=== PATIENT | female | born 1975 | race Caucasian/White ===

== ENCOUNTER 2017-06-09 08:23 | Day surgery (SDC) | payer OTHER, SELFPAY ==
--- NOTE | 2017-06-09 | EMB_PTH ---
PATIENT: DOMINIQUE STACK LOC: [facility] – [place] U#:[id number] AGE/SX: 41/F ROOM: RE06/09/[address]: Dr. Shilpi Enirque MD : [id number] BED: DIS: 06/09/2017 SPEC #: [id number] RECD: 06/09/17 14:27 STATUS: DESMOND JON #: [id number] YUSUF: 06/09/17 00:[address]: Shilpi Enrique DEPT: SURGICAL PATHOLOGY RECD BY: Dano Junior ENTERED: 06/09/17 14:28 SP TYPE: ENDOM BX/C DARWIN DR: Dr. Mert Smith MD Tissues: Endometrium, NOS Procedures: Surgery Specimen Level IV HEADER OPERATION: Hysteroscopy, dilation and curettage, polyp resection, Mirena PRE-OP DIAGNOSIS: Menorrhagia, endometrial polyp TISSUE SUBMITTED: Endometrial curettings MICROSCOPIC DIAGNOSIS Endometrial curettings: Secretory endometrium. See comment. SJ:meme 06/10/17 COMMENT No obvious changes consistent with polyps are noted. MICROSCOPIC DESCRIPTION Slides are reviewed. GROSS DESCRIPTION Received in fixative is one container labeled with the patient's name and designated endometrial curettings. The specimen consists of multiple fragments of hemorrhagic soft tissue that in aggregate measure 7.5 x 3 x 0.3 cm. The entire specimen is submitted in three cassettes. / SJ:meme 06/09/17 TC:4 CPT: 97505
[2017-06-09 08:53] LABS: Internal QC Validated? YES +Cl - CLEAR BKGD; Pregnancy, Urine Negative Negative
[2017-06-09 08:55] VITALS: BP 125/73; PULSE 64; RESP 16; TEMP 36.6; O2SAT 100; BMI 27.8
[2017-06-09 08:56] LABS: Hematocrit 36.8 % (37-47); Hemoglobin 11.6 g/dl (12.0-15.0); Mean Corp Hgb Conc 31.5 g/gl (32-36); Mean Corpuscular Hgb 24.7 pg (27.0-32.0); Mean Corpuscular Volume 78.3 fL (81-99); Mean Platelet Vol. 9.2 fl (6.2-12.0); Platelet Count 220 K/mm3 (150-450); Scan Indicated on CBC? Y/N YES- FLAGS NOTED; White Blood Count 4.8 K/mm3 (4.4-11.0)
[2017-06-09] MEDS: Ketorolac 60 MG/2 ML Vial IM (10:40)
--- NOTE | 2017-06-09 12:13 | PCM.DC.D&C ---
Discharge Diet: No Restrictions Discharge Activity: Return to Normal Activity, May Shower, May Take a Tub Bath - in 2 weeks. Return to work on:: 06/11/17 May shower in (days): 1 May resume sexual activity in: 2 weeks Call your doctor if your incision/area has: Sudden Increased Bleeding, Increased Pain/ Swelling, Foul Smelling Discharge Call your doctor if you observe: Fever of 101 or Higher, Shortness of breath, Dizziness Allergies/Adverse Reactions: Allergies citalopram [From Celexa] Adverse Reaction (Verified 06/02/17 15:21) emotional and increased depression Medications to take at Discharge Cholecalciferol (Vitamin D3) [Vitamin D3] 1,000 unit PO DAILY 06/02/17 Escitalopram Oxalate [Lexapro] 10 mg PO DAILY 06/02/17 Suppository For Surgery 1 supp VAGINAL UD 06/09/17 Primary Care Physician: Mert Smith MD [Primary Care Provider] - Please Follow Up With: Shilpi Enrique MD - [phone] When: 4-6 weeks or as needed
[2017-06-09 12:15] VITALS: BP 125/73; BP 126/91; PULSE 73; RESP 14; TEMP 36.6; O2SAT 100
--- NOTE | 2017-06-09 12:20 | OP.PCM_ITS ---
Report of Operation Date of Procedure: 06/09/17 Pre-Operative Diagnosis: endopmetrial polyp, menorrhagia, fe deficiency anemia due to chronic blood loss Post-Operative Diagnosis: same Surgery/Procedure Performed:: Hysteroscopy dilation and curettage with Mirena insertion. Description of Surgical Findings:: Lush endometrium with polypoid appearing structures at the fundus and on the right lateral uterine wall. Tubal ostia were identified. Normal-appearing cervix and vagina. clinical esthetician: mahsa DHILLON Type of Anesthesia:: General Anesthesiologist: Genna Benjamin Special Medications: none Specimen's removed: Endometrial curettings Drains: None Estimated Blood Loss (mL): 20cc Fluids Replaced: 1000 cc LR Description of Procedure: The patient was taken to the OR where she was prepped and draped in dorsal lithotomy position. The weighted speculum was placed in the vagina and the anterior lip of the cervix was grasped with a single-tooth tenaculum. A paracervical block was administered with 1% lidocaine with 1-200,000 epinephrine solution. The cervix was dilated serially with Hegar dilators. The 5mm hysteroscope was placed into the uterine cavity and the above findings were noted. Bilateral tubal ostia were identified. The hysteroscope was removed. A gentle sharp curettage was done of the uterine cavity. The instruments were removed from the vagina. The specimen was handed off and sent to pathology. The hysteroscope was replaced and confirmed that the polypoid material had been removed. Resection was necessary due to the small pedicles the polyps were on. The Mirena intrauterine system was then placed in the usual sterile fashion. The strings were cut to 2 cm. The instruments were removed from the vagina. All sponge and needle counts were correct. Vaginal sweep was performed by me. The patient was awakened and taken to the recovery room in stable condition. Hysteroscopic ins: 700cc normal saline Hysteroscopic outs: 500 cc Findings: Endometrial cavity: Lush endometrium, no fibroids noted. Small polyp on a small pedicle at the uterine fundus and some small polypoid appearing material on the right lateral uterine wall Cervix: normal Vagina: normal Grafts/Implants Used: Mirena - Complications None - Admit VTE Documentation VTE Present on Admission: No VTE Mechan Device Prophylaxis: SCD's VTE Pharm Prophylaxis ordered?: No Reason prophylaxis not ordered:: Procedure Not Indicated
[2017-06-09 12:30] VITALS: BP 125/73; BP 127/85; PULSE 70; RESP 16; O2SAT 97
[2017-06-09 12:45] VITALS: BP 125/73; BP 125/83; PULSE 68; RESP 16; O2SAT 96
[2017-06-09 13:00] VITALS: BP 122/82; BP 125/73; PULSE 67; RESP 16; TEMP 36.3; O2SAT 95
[2017-06-09 13:51] VITALS: BP 125/73
== END 2017-06-09 13:54 | disposition home or self-care (01) ==
LOC: SDC 08:27 → AC 08:27
PROVIDERS: Family Provider Family Medicine; PCP Family Medicine; Visit Provider Obstetrics & Gynecology
PROC: 0UDB8ZZ Extraction of Endometrium, Via Natural or Artificial Opening Endoscopic (ICD-10-PCS; CPT 58558; principal; 2017-06-09 10:00)
DX: N92.0 Excessive and frequent menstruation with regular cycle (principal); N84.0 Polyp of corpus uteri; D50.0 Iron deficiency anemia secondary to blood loss (chronic); Z86.718 Personal history of other venous thrombosis and embolism; F32.9 Major depressive disorder, single episode, unspecified; F41.9 Anxiety disorder, unspecified
CPT/HCPCS: 58300; 58558; 36415; 81025; 85027; 88305; J7120; J2405

== ENCOUNTER → 2017-06-23 09:26 | Outpatient (CLI) | payer OTHER, SELFPAY | PROVIDERS: Family Provider Family Medicine; PCP Family Medicine; Visit Provider Internal Medicine | DX: R00.2 Palpitations (principal) | CPT/HCPCS: 93225; 93226 ==

== ENCOUNTER → 2020-05-14 20:14 | Outpatient (CLI) | payer OTHER, SELFPAY | PROVIDERS: PCP Internal Medicine; Visit Provider Internal Medicine | DX: G47.33 Obstructive sleep apnea (adult) (pediatric) (principal) | CPT/HCPCS: 95810 ==

== ENCOUNTER 2024-07-29 02:38 | Emergency (ER) | payer OTHER, SELFPAY ==
[2024-07-29 02:39] VITALS: BP 162/89; PULSE 87; RESP 16; TEMP 36.2; O2SAT 98; BMI 33.5
--- NOTE | 2024-07-29 02:48 | EDS_ITS ---
HPI HPI - GI History of Present Illness Chief Complaint: Foreign Body Narrative Narrative: 48-year-old female presents with foreign body sensation in her throat that she has had since Tuesday. She states that approximately 4 days ago she was eating cantaloupe, and now her throat feels irritated. She states it feels like a piece is stuck in her esophagus. She denies any difficulty breathing, she did not choke. No difficulty swallowing. She has been able to eat and drink and handle her own secretions, but she states her throat feels irritated and more swollen. She states she was going to go to urgent care tomorrow morning and already has an appointment scheduled with her primary care provider for Tuesday. PFSH PFSH Medical History no medical history Home Medications ?Medication ?Instructions ?Recorded ?Last Taken ?Type escitalopram oxalate 10 mg tablet 10 mg PO DAILY 06/02 Unknown History Allergy/AdvReac Type Severity Reaction Status Date / Time citalopram (From [employer]) AdvReac emotional Verified 06/02/17 15:21 and increased depression Social History Smoking Status: Never smoker ROS ROS ED ROS Narrative Review of systems positive for foreign body sensation in throat. Throat feels more swollen. Denies difficulty swallowing or difficulty breathing, no prior foreign body sensation in throat. EXAM Physical Exam Narrative Exam Narrative: Afebrile. Vital signs noted. Nontoxic-appearing. Cardiovascular examination regular rate and rhythm. Lungs clear to auscultation bilaterally. Abdomen is soft and nontender. HEENT examination shows neck soft and supple without meningismus. No drooling or trismus. Airway patent. No Don angina. No evidence of foreign body in posterior pharynx. Const Vital Signs: 07/29/24 02:39 07/29/24 02:43 Temperature 97.2 F L Temperature Source Oral Pulse Rate 87 Respiratory Rate 16 Respiratory Effort Normal Respiratory Pattern Normal Blood Pressure 162/89 H Blood Pressure Mean 113 Pulse Ox 98 Oxygen Delivery Method Room Air MDM MDM MDM Narrative Medical decision making narrative: Differential diagnosis includes but not limited to globus hystericus/foreign body sensation versus pharyngitis versus esophageal web versus epiglottitis versus retropharyngeal abscess. History and physical does not support epiglottitis or retropharyngeal abscess. Patient's pulse ox is 98% on room air. There is no visualized foreign body in the posterior pharynx. She will be given a p.o. challenge of liquid which she states she has been passing for the last 4 days as she is able to eat and drink. X-rays were obtained of the soft tissue of the neck and interpreted by myself independently. Airway is patent. No evidence of foreign body. I reviewed the radiology report. It confirms my independent interpretation of no epiglottitis no retropharyngeal abscess. At this point in time, I feel she can be discharged to follow-up. Return instructions to the emergency department were reviewed. Disposition is discharged home in stable condition. History & Record Review Discussion w/independent historian: Patient Radiography Diagnostic Testing: Clinical Impression(s) from Imaging Studies Soft Tissue Neck X-Ray 07/29/24 02:50 IMPRESSION: No radiopaque foreign body is seen. Reading Location: [place] [address] Discharge Plan Triage Chief Complaint: Foreign Body ED Provider: Luis M Raines Dx/Rx/DC Orders Clinical Impression: Foreign body sensation in throat, Encounter for medical screening examination Instructions: ED Screening Exam Medical Nonurgent, ED Pain, Acute, Uncertain Cause Prescriptions: No Action escitalopram oxalate 10 MG tablet 10 mg PO DAILY Primary Care Provider: Marbella Bravo Referrals: Marbella Bravo MD [Primary Care Provider] - 2 Days FriendJamison DO [Med Staff - Active Staff] - As soon as possible Activity Restrictions/Additional Instructions: Follow-up with your primary care provider as scheduled. You should also follow- up with gastroenterology to determine if you need upper endoscopy. Return with increased difficulty swallowing, new or worsening symptoms. Print Language: American Disposition Disposition: Home, Self Care
--- NOTE | 2024-07-29 02:50 | RAD_ITS ---
PROCEDURE: NECK FOR SOFT TISSUE 07/29/2024 REASON FOR EXAM: FOREIGN BODY SENSATION TECHNIQUE: NECK FOR SOFT TISSUE COMPARISON: None. FINDINGS: Normal epiglottis, without demonstrated thickening or altered morphology. Normal visualized nasopharynx, oropharynx, hypopharynx. Normal prevertebral soft tissue structures. Normal visualized subglottic tracheal air column. Normal osseous structures. There is no demonstrated soft tissue abnormality. RAD/Neck for Soft Tissue IMPRESSION: No radiopaque foreign body is seen. Reading [facility]
[2024-07-29 03:38] VITALS: BP 143/71; PULSE 75; RESP 16; TEMP 36.2; O2SAT 98
== END 2024-07-29 03:39 | disposition home or self-care (01) ==
PROVIDERS: Emergency Provider Emergency Medicine; PCP Internal Medicine; Visit Provider Emergency Medicine
DX: R09.A2 Foreign body sensation, throat (principal)
CPT/HCPCS: 70360; 99282